=== PATIENT | male | born 1975 | race Caucasian/White ===

== ENCOUNTER → 2023-04-26 | Outpatient (REF) | payer BC ==
[2023-04-26 18:39] LABS: BASO # 0.1 10^3/uL (0.0-0.2); BASO % 1.2 % (0.0-1.0); EOS # 0.1 10^3/uL (0.0-0.5); EOS % 0.9 % (0.0-3.0); HEMATOCRIT 44.3 % (42.0-52.0); HEMOGLOBIN 14.3 g/dl (13.5-17.5); LYMPH # 2.3 10^3/uL (1.5-5.0); LYMPH % 40.2 % (24.0-44.0); MEAN CORPUSCULAR HEMOGLOBIN 30.8 pg (27.0-33.0); MEAN CORPUSCULAR HGB CONC 32.3 g/dl (32.0-36.5); MEAN CORPUSCULAR VOLUME 95.3 fl (80.0-96.0); MONO # 0.6 10^3/uL (0.0-0.8); MONO % 10.1 % (2.0-8.0); NEUTROPHILS # 2.7 10^3/uL (1.5-8.5); NEUTROPHILS % 47.4 % (36.0-66.0); PLATELET COUNT, AUTOMATED 309 10^3/uL (150-450); RED BLOOD COUNT 4.65 10^6/uL (4.30-6.10); WHITE BLOOD COUNT 5.6 10^3/uL (4.0-10.0)
[2023-04-26 19:11] LABS: ALKALINE PHOSPHATASE 295 U/L (46-116); ALT/SGPT 88 U/L (7.0-40); AST/SGOT 35 U/L (<34); BILIRUBIN,TOTAL 0.8 MG/DL (0.3-1.2); BLOOD UREA NITROGEN 14 MG/DL (9-23); CALCIUM LEVEL 9.7 MG/DL (8.5-10.1); CARBON DIOXIDE LEVEL 27 MMOL/L (20-31); CHLORIDE LEVEL 105 MMOL/L (98-107); CHOLESTEROL LEVEL 173 MG/DL (<200); CHOLESTEROL RISK RATIO 3.06 (<5); CREATININE FOR GFR 1.04 MG/DL (0.70-1.30); GLOMERULAR FILTRATION RATE > 60.0 (>60); GLUCOSE, FASTING 85 MG/DL (60-100); HDL CHOLESTEROL 56.5 MG/DL (>40); LDL CHOLESTEROL 98.9 MG/DL (<100); NON-HDL-C 116.5 MG/DL; POTASSIUM SERUM 4.5 MMOL/L (3.5-5.1); SODIUM LEVEL 139 MMOL/L (136-145); TOTAL PROTEIN 7.1 G/DL (5.7-8.2); TRIGLYCERIDES LEVEL 88 MG/DL (<150)
[2023-04-28 16:08] LABS: TESTOSTERONE FREE (DIRECT) 8.3 pg/mL (6.8-21.5)
== END ==
LOC: M SFHCCLAY 10:16
PROVIDERS: ATTEND Family Medicine
DX: I10 Essential (primary) hypertension (principal); E78.5 Hyperlipidemia, unspecified; N40.1 Benign prostatic hyperplasia with lower urinary tract symptoms; R35.1 Nocturia

== ENCOUNTER 2025-09-03 17:05 | Observation (INO) | payer BC, OTHER ==
[~2025-09-03] VITALS: Ht 175.3 cm; Wt 80.6 kg
[2025-09-03] MEDS ORDERED: IBUP600T42 (17:17)
[2025-09-03] MEDS ORDERED: TADA5TAB2 PO (17:17)
[2025-09-03] MEDS ORDERED: VALS1TAB67 PO (17:17)
[2025-09-03] MEDS ORDERED: ONDA-84 (17:17)
[2025-09-03] MEDS ORDERED: TAMS1CAP17 PO (17:17)
[2025-09-03] MEDS ORDERED: BUPR-71 PO (17:17)
[2025-09-03] MEDS ORDERED: HYDR-3713 PO (17:17)
[2025-09-03] MEDS: KETOROLAC 30 MG/ML 1 ML VIAL IV ONE (18:00)
[2025-09-03 18:08] LABS: BASO # 0.0 10^3/uL (0.0-0.2); BASO % 0.4 % (0.0-1.0); EOS # 0.0 10^3/uL (0.0-0.5); EOS % 0.1 % (0.0-3.0); LYMPH # 1.1 10^3/uL (1.5-5.0); LYMPH % 11.4 % (24.0-44.0); MONO # 0.4 10^3/uL (0.0-0.8); MONO % 4.4 % (2.0-8.0); NEUTROPHILS # 8.3 10^3/uL (1.5-8.5); NEUTROPHILS % 83.3 % (36.0-66.0); PLATELET COUNT, AUTOMATED 278 10^3/uL (150-450)
[2025-09-03 18:18] LABS: KETONE, URINE AUTO RFX TRACE mg/dL (NEGATIVE); LEUKOCYTE ESTERASE UR AUTO RFX NEGATIVE (NEGATIVE); MUCUS, URINE RFX SMALL (NEGATIVE); NITRITE, URINE AUTO RFX NEGATIVE (NEGATIVE); RBC, URINE AUTO RFX TNTC /HPF (0-3); SQUAM EPITHELIAL CELL UR AURFX 0 /HPF (0-6); WBC, URINE AUTO RFX 6 /HPF (0-3)
[2025-09-03 18:26] LABS: INR 0.9
[2025-09-03 18:29] LABS: ALT/SGPT 122 U/L (7.0-40); AST/SGOT 48 U/L (<34); CALCIUM LEVEL 9.6 MG/DL (8.5-10.1); CARBON DIOXIDE LEVEL 25 MMOL/L (20-31); CHLORIDE LEVEL 101 MMOL/L (98-107); CREATININE FOR GFR 0.99 MG/DL (0.70-1.30); GLOMERULAR FILTRATION RATE > 90.0 (>56); POTASSIUM SERUM 3.9 MMOL/L (3.5-5.1); SODIUM LEVEL 139 MMOL/L (136-145)
[2025-09-03] MEDS ORDERED: IBUP200T46 PO (19:57)
[2025-09-03] MEDS ORDERED: HOME MED LIST COMPLETE! XX SCH (20:00)
[2025-09-03] MEDS ORDERED: ONDANSETRON 4MG/2ML VIAL IV PRN (20:05)
[2025-09-03] MEDS: NS (Normal Saline) 0.9% 1,000 ML IV SCH (21:35)
[2025-09-03] MEDS: TAMSULOSIN 0.4 MG CAP PO SCH (21:35)
[2025-09-03] MEDS: MORPHINE 4 MG/ML 1 ML VIAL IV ONE (22:31)
[2025-09-04] MEDS: KETOROLAC 30 MG/ML 1 ML VIAL IV PRN (08:02)
[2025-09-04] MEDS ORDERED: KETOROLAC 30 MG/ML 1 ML VIAL IV PRN (08:40)
[2025-09-04 08:42] LABS: PLATELET COUNT, AUTOMATED 244 10^3/uL (150-450)
[2025-09-04] MEDS ORDERED: NIFEdipine 30 MG XL TAB PO SCH (09:00)
[2025-09-04 09:07] LABS: ALT/SGPT 93.0 U/L (7.0-40); AST/SGOT 36.0 U/L (<34); CALCIUM LEVEL 8.9 MG/DL (8.5-10.1); CARBON DIOXIDE LEVEL 28.0 MMOL/L (20-31); CHLORIDE LEVEL 104.0 MMOL/L (98-107); CREATININE FOR GFR 1.06 MG/DL (0.70-1.30); GLOMERULAR FILTRATION RATE 85.5 (>56); POTASSIUM SERUM 4.3 MMOL/L (3.5-5.1); SODIUM LEVEL 140.0 MMOL/L (136-145)
[2025-09-04] MEDS: VALSARTAN 80MG TAB PO SCH (09:50)
[2025-09-04] MEDS: buPROPion **SR** 150 MG TABLET PO SCH (10:31)
[2025-09-04 11:03] VITALS: BP 135/85; TEMP 98.1; O2SAT 96
[2025-09-04] MEDS: ISOVUE-300 61% 100 ML VIAL As Ordered ONE (17:41)
[2025-09-04] MEDS ORDERED: dexAMETHasone 4 MG/ML 1 ML VIAL As Ordered ONE (18:10)
[2025-09-04] MEDS ORDERED: dexmedeTOMIDine (4 MCG/ML) 200 MCG/50 ML BTL As Ordered ONE (18:10)
[2025-09-04] MEDS ORDERED: LIDOCAINE 2% 100 MG/5 ML SDV (FOR ANES.) As Ordered ONE (18:10)
[2025-09-04] MEDS ORDERED: MIDAZOLAM INJ 2 MG/2 ML VIAL As Ordered ONE (18:10)
[2025-09-04] MEDS ORDERED: ONDANSETRON 4MG/2ML VIAL As Ordered ONE (18:10)
[2025-09-04] MEDS ORDERED: ACETAMINOPHEN 1000MG/100ML IV BAG As Ordered ONE (18:10)
[2025-09-04 20:00] VITALS: BP 146/84; TEMP 97.3; O2SAT 96
[2025-09-04] MEDS: PHENAZOPYRIDINE 100 MG TAB PO SCH (20:15)
[2025-09-05] MEDS ORDERED: FLUZONE VACCINE TRI PF(25-26) 0.5ML SYRINGE IM.IMMUN ONE (09:00)
== END 2025-09-04 20:28 | disposition home or self-care (01) ==
LOC: M ED 17:05 → M ED INP 17:06 → M MSPAV 09-04 10:42
PROVIDERS: ADMIT Student in an Organized Health Care Education/Training Program; ATTEND Internal Medicine
DX: N20.2 Calculus of kidney with calculus of ureter (principal)
CPT/HCPCS: 36415; 52356; 74176; 76000; 80048; 80053; 80076; 81001; 82150; 82365; 83690; 85025; 85027; 85610; 85730; 96374; 96375; 96376; 99284; C1769; C1894; C2617; J0131; J0688; J1100; J1885; J2250; J2405; J3010; S0106

== ENCOUNTER → 2025-10-25 | Outpatient (REF) | payer BC ==
[~2025-10-25] MED LIST: BUPR-71 PO; HYDR-3713 PO; IBUP200T46 PO; IBUP600T42; ONDA-84; OXYB5TAB14 PO; PHEN1TAB73 PO; TADA5TAB2 PO; TAMS1CAP17 PO; VALS1TAB67 PO
[2025-10-25 17:29] LABS: INR 0.94
[2025-10-25 17:35] LABS: PLATELET COUNT, AUTOMATED 297 10^3/uL (150-450)
[2025-10-25 17:43] LABS: ALT/SGPT 61 U/L (7.0-40); AST/SGOT 44 U/L (<34); CALCIUM LEVEL 9.6 MG/DL (8.5-10.1); CARBON DIOXIDE LEVEL 29 MMOL/L (20-31); CHLORIDE LEVEL 104 MMOL/L (98-107); CREATININE FOR GFR 0.97 MG/DL (0.70-1.30); GLOMERULAR FILTRATION RATE > 90.0 (>56); POTASSIUM SERUM 4.3 MMOL/L (3.5-5.1); SODIUM LEVEL 141 MMOL/L (136-145)
== END ==
LOC: M SFHCCLAY 13:51
PROVIDERS: ATTEND Urology
DX: N20.0 Calculus of kidney (principal); Z96.0 Presence of urogenital implants

== ENCOUNTER → 2025-10-25 | Outpatient (CLI) | payer BC | LOC: M CLY 13:57 | PROVIDERS: ATTEND Urology | DX: Z96.0 Presence of urogenital implants (principal) ==

== ENCOUNTER 2025-11-01 07:30 | Day surgery (SDC) | payer BC ==
[~2025-11-01] VITALS: Ht 175.3 cm; Wt 80.3 kg
[2025-11-01] MEDS ORDERED: LR 1,000 ML IV SCH (08:30)
[2025-11-01] MEDS ORDERED: LIDOCAINE 2% 100 MG/5 ML SDV (FOR ANES.) As Ordered ONE (09:43)
[2025-11-01] MEDS ORDERED: MIDAZOLAM INJ 2 MG/2 ML VIAL As Ordered ONE (09:43)
[2025-11-01] MEDS ORDERED: ONDANSETRON 4MG/2ML VIAL As Ordered ONE (09:44)
[2025-11-01] MEDS ORDERED: dexAMETHasone 4 MG/ML 1 ML VIAL As Ordered ONE (09:44)
[2025-11-01] MEDS: ceFAZolin SOD 2 GM IV ONCE IV ONE (09:55)
[2025-11-01] MEDS ORDERED: ACETAMINOPHEN 1000MG/100ML IV BAG As Ordered ONE (09:59)
[2025-11-01] MEDS ORDERED: KETOROLAC 30 MG/ML 1 ML VIAL As Ordered ONE (10:10)
[2025-11-01 11:00] VITALS: BP 122/86; TEMP 98.5; O2SAT 20
== END 2025-11-01 11:20 | disposition home or self-care (01) ==
LOC: M SDC 07:30
PROVIDERS: ATTEND Urology
DX: N20.0 Calculus of kidney (principal); N40.0 Benign prostatic hyperplasia without lower urinary tract symptoms; I10 Essential (primary) hypertension; Z79.899 Other long term (current) drug therapy; Z90.49 Acquired absence of other specified parts of digestive tract; Z87.442 Personal history of urinary calculi
CPT/HCPCS: 50590; 74018; J0131; J0688; J1100; J1885; J2250; J2405; J3010